=== PATIENT | male | born 1985 | race Caucasian/White ===

== ENCOUNTER 2016-11-19 01:48 | Inpatient (IN) | payer OTHER ==
[~2016-11-19] VITALS: Ht 177.8 cm; Wt 90.4 kg
[2016-11-19 01:57] VITALS: BP 147/88; RESP 16; O2SAT 98
[2016-11-19] MEDS ORDERED: SODIUM CHLORIDE 0.9% FLUSH 5 ML FLUSH IVF PRN ×2 (02:15→04:00)
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
[2016-11-19] MEDS ORDERED: TETANUS/DIPHTHERIA TOXOID ADULT 0.5 ML VIAL IM ONE (03:30)
[2016-11-19] MEDS ORDERED: ceFAZolin 2 GM PREMIX 50 ML IV ONE (03:30)
[2016-11-19] MEDS ORDERED: DEXAMETHASONE SOD PHOS 20 MG/5 ML VIAL IV PUSH ONE (03:30)
[2016-11-19 03:31] LABS: ALKALINE PHOSPHATASE 50 U/L (45-117); ALT (GPT) 53 U/L (12-78); TOTAL BILIRUBIN ADULT 0.4 MG/DL (0.2-1.0)
[2016-11-19] MEDS ORDERED: LIDOCAINE 1%/EPINEPHrine 1:100,000 SOLN 20 ML VIAL INFIL ONE (03:45)
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
[2016-11-19 03:59] LABS: ANION GAP 9 MEQ/L (5-15); AST (GOT) 53 U/L (15-37); BICARBONATE 25.1 MEQ/L (21.0-32.0); BLOOD UREA NITROGEN 8 MG/DL (7-18); CHLORIDE 107 MEQ/L (98-107); GLOMERULAR FILTRATION RATE 70 ML/MIN (>89); POTASSIUM 4.9 MEQ/L (3.5-5.1); SODIUM (NA) 141 MEQ/L (136-145)
[2016-11-19] MEDS ORDERED: ENALAPRILAT 1.25 MG/ML VIAL IV PRN (04:00)
[2016-11-19] MEDS ORDERED: CHLORHEXIDINE GLUCONATE 2 % 1 PACK (2 CLOTHS) TOP PRN (04:00)
[2016-11-19] MEDS ORDERED: MAGNESIUM HYDROXIDE SUSP 30 ML CUP PO PRN (04:00)
[2016-11-19] MEDS ORDERED: MISCELLANEOUS NURSING INFORMATION XX SCH (04:00)
[2016-11-19] MEDS: CHLORHEXIDINE GLUCONATE 2 % 1 PACK (2 CLOTHS) TOP SCH (04:00)
--- NOTE | 2016-11-19 04:45 | PD ---
Physical Exam Date Seen by Provider: Nov 19, 2016 Time Seen by Provider: 04:39 Data Data Last Documented VS Vital Signs Date Time Temp Pulse Resp B/P Pulse Ox O2 Delivery O2 Flow Rate FiO2 11/19/16 01:57 16 147/[address] Brain W/O Iv Contrast(Rout) (11/19/16 ) Ct Cerv Spine W/O Contrast (11/19/16 ) Ct Facial Bones W/O Iv Cont (11/19/16 ) Chest, Single Ap (11/19/16 ) Complete Blood Count With Diff (11/19/16 02:12) Comprehensive Metabolic Panel (11/19/16 02:12) Lipase (11/19/16 02:12) Prothrombin Time / Inr (Pt) (11/19/16 02:12) Act Partial Throm Time (Ptt) (11/19/16 02:12) Iv Access Insert/Monitor (11/19/16 02:12) Ecg Monitoring (11/19/16 02:12) Oximetry (11/19/16 02:12) Sodium Chloride 0.9% Flush (Ns Flush) (11/19/16 02:15) Electrocardiogram (11/19/16 02:12) Tetanus/Diphtheria Tox Adult (Tetanus/Di (11/19/16 03:30) Dexamethasone Inj (Decadron Inj) (11/19/16 03:30) Cefazolin 2 Gm Premix (Ancef 2 Gm Premix (11/19/16 03:30) Admit Order (Ed Use Only) (11/19/16 ) Labs Laboratory Tests Test 11/19/16 02:50 Sodium Level 141 MEQ/L Potassium Level 4.9 MEQ/L Chloride Level 107 MEQ/L Carbon Dioxide Level 25.1 MEQ/L Anion Gap 9 MEQ/L Blood Urea Nitrogen 8 MG/DL Creatinine 1.20 MG/DL Estimat Glomerular Filtration 70 ML/MIN Rate Random Glucose 137 MG/DL Calcium Level 7.8 MG/DL Total Bilirubin 0.4 MG/DL Aspartate Amino Transf 53 U/L (AST/SGOT) Alanine Aminotransferase 53 U/L (ALT/SGPT) Alkaline Phosphatase 50 U/L Total Protein 7.0 GM/DL Albumin 3.8 GM/DL Lipase 162 U/L [facility] Medical Record Reviewed: Yes Supervised Visit with HECTOR: Yes Differential Diagnosis MDM: High Differential diagnoses: Fracture, sprain, strain, dislocation, contusion, neurovascular injury Narrative Course Patient's lacerations are closed with sutures. Procedures Procedure Narrative LACERATION LOCATION: Left eyebrow LENGTH: 2 cm NUMBER OF STITCHES/IDA: 4 REPAIR: The area of the laceration was prepped with Betadine and sterilely draped. The laceration was infiltrated with 1% lidocaine with epinephrine. The wound was copiously irrigated and explored without evidence of foreign body , tendon injury or neurovascular injury. The wound was closed using 6-0 proline. This was a simple single layer repair. A sterile dressing was applied. The patient was advised to keep the dressing clean and dry. Patient tolerated the procedure well. LACERATION LOCATION: Left cheek LENGTH: 1.5cm NUMBER OF STITCHES/IDA: 2 REPAIR: The area of the laceration was prepped with Betadine and sterilely draped. The laceration was infiltrated with 1% lidocaine with epinephrine. The wound was copiously irrigated and explored without evidence of foreign body , tendon injury or neurovascular injury. The wound was closed using 6-0 proline. This was a simple single layer repair. A sterile dressing was applied. The patient was advised to keep the dressing clean and dry. Patient tolerated the procedure well. LACERATION LOCATION: Left upper lip LENGTH: 3 cm NUMBER OF STITCHES/IAD: 8 REPAIR: The area of the laceration was prepped with Betadine and sterilely draped. The laceration was infiltrated with 1% lidocaine with epinephrine. Superficial dirt foreign bodies are removed using saline irrigation and forceps. Q-tips soaked in saline are also use.. The wound was copiously irrigated a second time and explored without evidence of foreign body, tendon injury or neurovascular injury. The subcutaneous tissues are closed using 5-0 Vicryl. The skin was closed using 6-0 proline. This was a intermediate 2 layer repair.The patient was advised to keep the dressing clean and dry. Patient tolerated the procedure well. LACERATION LOCATION: Left lower lip LENGTH: 4 cm NUMBER OF STITCHES/IDA: 12 REPAIR: The area of the laceration was prepped with Betadine and sterilely draped. The laceration was infiltrated with 1% lidocaine with epinephrine. Superficial dirt foreign bodies are removed using saline irrigation and forceps. Q-tips soaked in saline are also use.. The wound was copiously irrigated a second time and explored without evidence of foreign body, tendon injury or neurovascular injury. The subcutaneous tissues are closed using 5-0 Vicryl. The skin was closed using 6-0 proline. This was a intermediate 2 layer repair. The patient was advised to keep the dressing clean and dry. Patient tolerated the procedure well. Scripts No Active Prescriptions or Reported Meds Alberto Alexander Nov 19, 2016 04:45
[2016-11-19 05:07] VITALS: BP 134/68; PULSE 107; RESP 18; O2SAT 97
[2016-11-19] MEDS: CLINDAMYCIN INJ 300 MG in SODIUM CHLORIDE 0.9% INJ 100 ML IV SCH ×3 (06:11→20:15)
[2016-11-19] MEDS: LACTATED RINGER'S 1000 ML INJ 1,000 ML IV SCH ×3 (06:12→19:58)
[2016-11-19 06:35] VITALS: BP 113/75; PULSE 107; RESP 16; TEMP 97.2; O2SAT 98
[2016-11-19 07:33] LABS: AUTOMATED NEUTROPHIL # 11.3 TH/MM3 (1.8-7.7); BASOPHIL % 0.1 % (0.0-2.0); HEMATOCRIT 41.6 % (39.0-51.0); HEMO FLAGS DIFF FINAL; LYMPH % 4.1 % (9.0-44.0); LYMPHOCYTE # 0.5 TH/MM3 (1.0-4.8); MEAN CELL VOLUME 85.4 FL (80.0-100.0); MEAN CORPUSCULAR HEMOGLOBIN 30.1 PG (27.0-34.0); MEAN CORPUSCULAR HGB CONC 35.3 % (32.0-36.0); MONO % 2.7 % (0.0-8.0); NEUT % 93.1 % (16.0-70.0); PLATELET COUNT 205 TH/MM3 (150-450); RED BLOOD COUNT 4.87 MIL/MM3 (4.50-5.90); RED CELL DISTRIBUTION WIDTH 12.3 % (11.6-17.2); WHITE BLOOD COUNT 12.1 TH/MM3 (4.0-11.0)
[2016-11-19 07:43] LABS: APTT (PATIENT) 26.1 SEC (24.3-30.1); INTERNATIONAL NORMALIZED RATIO 1.1 RATIO
[2016-11-19] MEDS: FOLIC ACID 1 MG TAB PO SCH (09:00)
[2016-11-19] MEDS: MULTIVITAMIN TAB PO SCH (09:00)
[2016-11-19] MEDS: DOCUSATE SODIUM 100 MG/10 ML UDC PO SCH ×2 (09:00→21:13)
[2016-11-19] MEDS: BACITRACIN TOP OINT 15 GM TUBE TOP SCH ×2 (09:00→21:00)
[2016-11-19] MEDS: THIAMINE HCL 100 MG TAB PO SCH (09:00)
[2016-11-19] MEDS: HYDROmorphone HCL PF 1 MG/ML VIAL IVP PRN ×3 (10:08→21:11)
[2016-11-19 12:00] VITALS: BP 143/74; PULSE 108; RESP 18; TEMP 97.5; O2SAT 97
--- NOTE | 2016-11-19 14:13 | EKG ---
Date Performed: 11/19/2016 Time Performed: 02:42:13 PTAGE: 31 years EKG: SINUS TACHYCARDIA NONSPECIFIC T-WAVE ABNORMALITY ABNORMAL RHYTHM ECG NO PREVIOUS TRACING DOCTOR: Cuauhtemoc Palencia Interpretating Date/Time 11/19/2016 14:11:27
[2016-11-19] MEDS: ONDANSETRON HCL 4 MG/2 ML VIAL IV PRN ×2 (15:01→21:09)
[2016-11-19 16:00] VITALS: BP 149/79; PULSE 100; RESP 18; TEMP 98.8; O2SAT 99
--- NOTE | 2016-11-19 16:00 | RADRPT ---
EXAM DATE/TIME: 11/19/2016 15:03 [facility] COMPARISON: No previous studies available for comparison. INDICATIONS : Pain and swelling right, trauma MEDICAL HISTORY : Previous right hand fracture SURGICAL HISTORY : None. ENCOUNTER: Initial ACUITY: 2 days PAIN SCORE: 3/10 LOCATION: Right Hand FINDINGS: Remote fracture of the fifth metacarpal with slight volar angulation. No acute fractures are seen. No rmal bone density. CONCLUSION: No acute disease. Handy Pelayo MD on November 19, 2016 at 15:46 Board Certified Radiologist. This report was verified electronically.
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
[2016-11-19 22:00] VITALS: BP 146/76; PULSE 80; RESP 20; TEMP 98; O2SAT 99
[2016-11-20] VITALS: BP 140/80; PULSE 76; RESP 20; TEMP 97.8; O2SAT 98
[2016-11-20] MEDS: ONDANSETRON HCL 4 MG/2 ML VIAL IV PRN ×2 (03:04→10:49)
[2016-11-20] MEDS: HYDROmorphone HCL PF 1 MG/ML VIAL IVP PRN ×3 (03:05→13:09)
[2016-11-20] MEDS: CLINDAMYCIN INJ 300 MG in SODIUM CHLORIDE 0.9% INJ 100 ML IV SCH ×2 (03:06→10:49)
[2016-11-20] MEDS: LACTATED RINGER'S 1000 ML INJ 1,000 ML IV SCH ×2 (03:06→11:58)
[2016-11-20] MEDS: CHLORHEXIDINE GLUCONATE 2 % 1 PACK (2 CLOTHS) TOP SCH (03:07)
[2016-11-20] MEDS: THIAMINE HCL 100 MG TAB PO SCH (07:55)
[2016-11-20] MEDS: MULTIVITAMIN TAB PO SCH (07:55)
[2016-11-20] MEDS: BACITRACIN TOP OINT 15 GM TUBE TOP SCH (07:55)
[2016-11-20] MEDS: FOLIC ACID 1 MG TAB PO SCH (07:55)
[2016-11-20] MEDS: DOCUSATE SODIUM 100 MG/10 ML UDC PO SCH (07:55)
[2016-11-20 08:00] VITALS: BP 143/65; PULSE 63; RESP 18; TEMP 97.8; O2SAT 99
[2016-11-20 08:00] LABS: AUTOMATED NEUTROPHIL # 7.5 TH/MM3 (1.8-7.7); BASOPHIL % 0.1 % (0.0-2.0); EOSINOPHIL % 0.1 % (0.0-4.0); HEMATOCRIT 38.6 % (39.0-51.0); HEMO FLAGS DIFF FINAL; LYMPH % 14.8 % (9.0-44.0); LYMPHOCYTE # 1.5 TH/MM3 (1.0-4.8); MEAN CELL VOLUME 85.7 FL (80.0-100.0); MEAN CORPUSCULAR HEMOGLOBIN 30.3 PG (27.0-34.0); MEAN CORPUSCULAR HGB CONC 35.3 % (32.0-36.0); MONO % 10.6 % (0.0-8.0); NEUT % 74.4 % (16.0-70.0); PLATELET COUNT 191 TH/MM3 (150-450); RED CELL DISTRIBUTION WIDTH 12.5 % (11.6-17.2); WHITE BLOOD COUNT 10.1 TH/MM3 (4.0-11.0)
[2016-11-20 08:17] LABS: BICARBONATE 29.2 MEQ/L (21.0-32.0)
[2016-11-20] MEDS ORDERED: ZOFR4TAB3 SL (11:08)
[2016-11-20 12:00] VITALS: BP 123/76; PULSE 62; RESP 18; TEMP 97.4; O2SAT 99
[2016-11-20 13:39] VITALS: RESP 18
[2016-11-20] MEDS ORDERED: PERC5TAB12 PO (13:43)
[2016-11-20] MEDS ORDERED: CEPH-460 PO (14:04)
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
== END 2016-11-20 14:53 | disposition home or self-care (01) | DRG 87 ==
LOC: NEPC 01:48 → NEDA 03:25 → N06B 05:38
PROVIDERS: ADMIT Surgery; ATTEND Surgery
PROC: 0HQ1XZZ Repair Face Skin, External Approach (ICD-10-PCS; principal; 2016-11-19)
PROC: 0HQ1XZZ Repair Face Skin, External Approach (ICD-10-PCS; 2016-11-19)
PROC: 0CQ0XZZ Repair Upper Lip, External Approach (ICD-10-PCS; 2016-11-19)
PROC: 0CQ1XZZ Repair Lower Lip, External Approach (ICD-10-PCS; 2016-11-19)
DX: S02.0XXA Fracture of vault of skull, initial encounter for closed fracture (principal); F10.129 Alcohol abuse with intoxication, unspecified; S01.412A Laceration without foreign body of left cheek and temporomandibular area, initial encounter; H53.2 Diplopia; S01.511A Laceration without foreign body of lip, initial encounter; S02.401A Maxillary fracture, unspecified side, initial encounter for closed fracture; S02.402A Zygomatic fracture, unspecified side, initial encounter for closed fracture; S02.2XXA Fracture of nasal bones, initial encounter for closed fracture; Y04.2XXA Assault by strike against or bumped into by another person, initial encounter; Z72.0 Tobacco use; Y93.89 Activity, other specified; Y92.89 Other specified places as the place of occurrence of the external cause; Z23 Encounter for immunization
CPT/HCPCS: 12013; 12053; 70450; 70486; 71010; 72125; 73130; 80048; 80053; 83690; 85025; 85610; 85730; 90714; 93005; J0690; J1100; J1170; J2405; J7120